=== PATIENT | male | born 1965 | race Caucasian/White ===

== ENCOUNTER → 2017-10-29 | Outpatient (CLI) | payer BC, OTHER ==
--- NOTE | 2017-10-29 17:12 | PCVCIMAG ---
APPROVED REPORT Exam: Stress Echocardiogram Indication: CAD , CAD s/p PCI, Dyspnea Patient Location: Echo lab Stress Nurse: Pinky Duke RN Room #: 2 Status: routine Ht: 6 ft 3 in HR: 78 bpm BP: 120/82 mmHg Rhythm: NSR Medical History Medical History: CAD s/p stent, Smoking, HTN Cardiac Risk Factors: HTN, Tobacco History (Current/Recent), Hyperlipidemia Previous Cardiac Procedures: PCI Pretest Chest Pain Characteristics: No chest pain Exercise History: Physically active Procedure The patient underwent an Exercise Stress Test using the Andrew Protocol. Blood pressure, heart rate, and EKG were monitored. An Echocardiogram was performed by agronomy technician in four stages in quad fashion. At peak stress, four selected images were obtained and placed side by side with resting images for comparison. Stress Test Details Stress Test: Exercise stress testing was performed using a Andrew protocol. HR Resting HR: 78 bpmMax Heart Rate (APMHR): 167 bpm Max HR Achieved: 160 bpmTarget HR (85% APMHR): 141 bpm % of APMHR: 95 Recovery HR: 100 bpm HR response to stress: Normal HR response to stress BP Resting BP: 120/82 mmHg Max BP: 168/80 mmHg Recovery BP: 124/82 mmHg ECG Resting ECG: Sinus Rhythm Stress ECG: Sinus Rhythm ST Change: Non-ischemic Maximum ST Deviation: 0.35 mm Arrhythmia: Rare PVC Recovery ECG: Sinus Rhythm Recovery ST Change: Non-ischemic Recovery ST Deviation: 0.45 mm Recovery Arrhythmia: None Clinical Reason for Termination: Maximal effort Stress Symptoms: none Exercise duration: 10 min 43 sec Highest Stage Achieved: Stage 4: 4.2 mph at 16% grade. Exercise capacity: 13.4 METs Overall Exercise Capacity for Age: Good Angina Score: None Stress ECG Conclusion The patient exercised according to the Andrew Protocol for 10:43 minutes, achieving a maximum work level of 13.4 METS. The resting heart rate of 78 bpm, esteban to a maximal level of 160 bpm. This value represents 95 % of the maximal, age-predicted heart rate. The resting blood pressure of 120/82 mmHg, esteban to a maximum blood pressure of 168/80 mmHg. The exercise was stopped due to fatigue. Shanks Treadmill Score is 8.3 which is Low risk. Pre-Stress Echo The resting Echocardiogram showed normal left ventricular contractility with an estimated Ejection Fraction of about 55-60%. Normal wall motion in all segments on baseline images. Post-Stress Echo The stress Echocardiogram showed normal left ventricular contractility with an estimated Ejection Fraction of about 65-70%. Normal augmentation of wall motion in all segments on post stress images. Clinical No clinical or ECG evidence for ischemia. Conclusion Clinical Response: Non-ischemic Exercise Capacity: Superior Stress ECG Response: Non-ischemic Stress Echo Images: Non-ischemic No clinical, EKG or echocardiographic evidence for ischemia. No echocardiographic evidence for exercise induced ischemia. Normal stress echocardiogram with maximal exercise stress. <Conclusion> No clinical, EKG or echocardiographic evidence for ischemia. No echocardiographic evidence for exercise induced ischemia. Normal stress echocardiogram with maximal exercise stress.
== END | disposition home or self-care (01) ==
LOC: PCVCIMAG 15:32
PROVIDERS: ATTEND Internal Medicine Cardiovascular Disease
DX: I25.10 Atherosclerotic heart disease of native coronary artery without angina pectoris (principal); R07.9 Chest pain, unspecified; R06.00 Dyspnea, unspecified; I10 Essential (primary) hypertension; E78.5 Hyperlipidemia, unspecified; F17.200 Nicotine dependence, unspecified, uncomplicated; Z95.5 Presence of coronary angioplasty implant and graft
CPT/HCPCS: 93325; 93351